=== PATIENT | female | born 1940 | race Caucasian/White ===

== ENCOUNTER 2019-11-26 21:18 | Inpatient (IN) ==
[2019-11-27] MEDS ORDERED: Naloxone 0.4 MG/ML INJ IVP PRN ×2 (00:57→03:50)
[2019-11-27] MEDS ORDERED: Ringers Solution, Lactated 1,000 ML IVC SCH (01:00)
[2019-11-27] MEDS ORDERED: Dextrose Gel 15 GM/37.5 ML TUBE PO PRN ×2 (01:01)
[2019-11-27] MEDS ORDERED: *HR* Dextrose 50 % in Water (Syg) 50 ML SYRINGE IVP PRN (01:01)
[2019-11-27] MEDS ORDERED: D5% in Water 1,000 ML IVC PRN (01:01)
[2019-11-27 02:31] LABS: INR 1.2; Prothrombin Time 13.7 Seconds (9.4-12.1)
[2019-11-27] MEDS: Ringers Solution, Lactated 1,000 ML IVC SCH ×2 (02:34→10:00)
[2019-11-27] MEDS: Acetaminophen 325 MG TABLET PO PRN ×2 (02:36→22:00)
[2019-11-27 02:41] LABS: Bilirubin,Urine Small (Negative); Blood,Urine Moderate (Negative); Clarity,Urine Turbid (Clear); Color,Urine Dark Yellow (Yellow); Glucose,Urine (UA) Normal (Normal); Ketones,Urine Negative (Negative); Leukocyte Esterase,Urine Large (Negative); Nitrite,Urine Negative (Negative); PH,Urine 5.5 pH Units (5.0-8.0); Protein,Urine 100 mg/dL (Neg-Trace); Specific Gravity,Urine 1.024 (1.010-1.025); Urobilinogen,Urine Normal (Normal)
[2019-11-27 02:43] LABS: Hyaline Casts,Urine None Seen per lpf (None-Few); Squamous Epithelial Cell,Urine Many per lpf (None-Few); WBC,Urine TNTC per hpf (0-3)
[2019-11-27 02:44] LABS: Albumin 3.3 g/dL (3.5-5.7); Bilirubin,Total 0.5 mg/dL (0.3-1.0); Calcium 9.2 mg/dL (8.6-10.3); Chol/HDL Ratio 5.1 (0-4.9); Globulin 3.3 g/dL (2.4-3.5); Magnesium 1.6 mg/dL (1.6-2.6); Phosphorous 3.4 mg/dL (2.7-4.5); Potassium 3.9 mEq/L (3.5-5.1); Total Protein 6.6 g/dL (6.4-8.9)
[2019-11-27 02:57] LABS: Basophils % 0.2 %; Eosinophils % 0.2 %; Hematocrit 37.9 % (35.3-44.9); Hemoglobin 12.3 g/dL (11.5-15.4); Immature Granulocytes % 0.3 % (0-4); Lymphocytes # 1.9 K/mcL (0.6-4.6); Lymphocytes % 15.7 %; Mean Corpuscular HGB Conc 32.5 g/dL (31.6-35.5); Mean Corpuscular Hemoglobin 30.1 pg (28.0-33.3); Mean Corpuscular Volume 92.9 fL (83.0-100.0); Mean Platelet Volume 10.3 fL (9.4-12.4); Monocytes # 0.6 K/mcL (0.0-1.3); Monocytes % 4.5 %; Neutrophils # 9.7 K/mcL (1.6-8.9); Platelet Count 226 K/mcL (140-400); Red Blood Count 4.08 M/mcL (3.82-4.97); Red Cell Distribution Width 13.7 % (11.5-14.5); Segmented Neutrophils % 79.1 %; White Blood Count 12.2 K/mcL (4.3-11.1)
[2019-11-27 03:07] LABS: Bacteria,Urine Few per hpf (None-Few)
[2019-11-27] MEDS ORDERED: Ondansetron 4 MG/2 ML VIAL IVP PRN (03:50)
[2019-11-27] MEDS ORDERED: Ringers Solution, Lactated 500 ML IVC ONE (03:59)
[2019-11-27] MEDS ORDERED: Ringers Solution, Lactated 1,000 ML ONE (04:26)
[2019-11-27] MEDS: cefTRIAXone 2,000 MG in Water for inj. (sterile) 20 ML IVP SCH (05:16)
[2019-11-27] MEDS: *HR* Heparin 5,000 UNIT/ML VIAL SQ SCH ×3 (05:22→22:00)
[2019-11-27 06:09] LABS: Basophils % 0.1 %; Hematocrit 31.8 % (35.3-44.9); Hemoglobin 10.8 g/dL (11.5-15.4); Immature Granulocytes % 0.5 % (0-4); Lymphocytes # 0.7 K/mcL (0.6-4.6); Mean Corpuscular Hemoglobin 30.9 pg (28.0-33.3); Mean Corpuscular Volume 91.1 fL (83.0-100.0); Mean Platelet Volume 10.4 fL (9.4-12.4); Monocytes # 0.6 K/mcL (0.0-1.3); Monocytes % 6.4 %; Neutrophils # 7.7 K/mcL (1.6-8.9); Platelet Count 179 K/mcL (140-400); Red Blood Count 3.49 M/mcL (3.82-4.97); Red Cell Distribution Width 13.5 % (11.5-14.5); White Blood Count 9.1 K/mcL (4.3-11.1)
[2019-11-27 06:30] LABS: Calcium 8.3 mg/dL (8.6-10.3); Magnesium 1.4 mg/dL (1.6-2.6); Phosphorous 2.5 mg/dL (2.7-4.5); Potassium 3.3 mEq/L (3.5-5.1)
[2019-11-27 06:45] LABS: INR 1.3; Prothrombin Time 15.3 Seconds (9.4-12.1)
[2019-11-27] MEDS ORDERED: Potassium Phosphate 44 MEQ in 0.9 % Sodium Chloride 250 ML IVPB ONE (07:41)
[2019-11-27] MEDS ORDERED: cefTRIAXone 1,000 MG in Water for inj. (sterile) 10 ML IVP SCH (09:00)
[2019-11-27 09:05] LABS: Estimated Average Glucose 180 mg/dl
[2019-11-27] MEDS: Aspirin 81 MG TAB.CHEW PO SCH (09:06)
[2019-11-27] MEDS: Metoprolol 100 MG TABLET PO SCH (09:06)
[2019-11-27] MEDS: Insulin LISPRO 300 UNITS/3 ML VIAL SQ SCH ×5 (09:07→21:58)
[2019-11-27] MEDS ORDERED: 0.9 % Sodium Chloride 500 ML IVC ONE (16:18)
[2019-11-27] MEDS: 0.9 % Sodium Chloride 1,000 ML IVC SCH (18:30)
[2019-11-27] MEDS: Insulin DETEMIR 100 UNIT/ML X5UNITS SQ SCH (21:59)
[2019-11-28] MEDS: 0.9 % Sodium Chloride 1,000 ML IVC SCH (03:26)
[2019-11-28] MEDS: cefTRIAXone 2,000 MG in Water for inj. (sterile) 20 ML IVP SCH (06:02)
[2019-11-28] MEDS: *HR* Heparin 5,000 UNIT/ML VIAL SQ SCH ×3 (06:02→21:25)
[2019-11-28 06:25] LABS: Hematocrit 29.4 % (35.3-44.9); Hemoglobin 9.4 g/dL (11.5-15.4); Mean Corpuscular Hemoglobin 30.2 pg (28.0-33.3); Mean Corpuscular Volume 94.5 fL (83.0-100.0); Mean Platelet Volume 10.5 fL (9.4-12.4); Platelet Count 159 K/mcL (140-400); Red Blood Count 3.11 M/mcL (3.82-4.97); Red Cell Distribution Width 13.8 % (11.5-14.5); White Blood Count 8.8 K/mcL (4.3-11.1)
[2019-11-28 06:41] LABS: Calcium 7.5 mg/dL (8.6-10.3); Magnesium 1.9 mg/dL (1.6-2.6); Phosphorous 3.3 mg/dL (2.7-4.5); Potassium 3.4 mEq/L (3.5-5.1)
[2019-11-28] MEDS: Insulin LISPRO 300 UNITS/3 ML VIAL SQ SCH ×5 (06:54→21:27)
[2019-11-28] MEDS: Metoprolol 100 MG TABLET PO SCH (08:17)
[2019-11-28] MEDS: Aspirin 81 MG TAB.CHEW PO SCH (08:18)
[2019-11-28] MEDS: Acetaminophen 325 MG TABLET PO PRN (08:18)
[2019-11-28] MEDS ORDERED: 0.9 % Sodium Chloride 1,000 ML IVC SCH (14:00)
[2019-11-28] MEDS: Insulin DETEMIR 100 UNIT/ML X5UNITS SQ SCH (21:27)
[2019-11-29] MEDS: *HR* Heparin 5,000 UNIT/ML VIAL SQ SCH ×3 (05:43→20:48)
[2019-11-29] MEDS: cefTRIAXone 2,000 MG in Water for inj. (sterile) 20 ML IVP SCH (05:43)
[2019-11-29 06:06] LABS: Hematocrit 29.7 % (35.3-44.9); Hemoglobin 9.5 g/dL (11.5-15.4); Mean Corpuscular Hemoglobin 30.1 pg (28.0-33.3); Mean Platelet Volume 10.7 fL (9.4-12.4); Platelet Count 192 K/mcL (140-400); Red Blood Count 3.16 M/mcL (3.82-4.97); Red Cell Distribution Width 13.6 % (11.5-14.5)
[2019-11-29 06:26] LABS: Calcium 8.3 mg/dL (8.6-10.3); Phosphorous 2.6 mg/dL (2.7-4.5); Potassium 3.7 mEq/L (3.5-5.1)
[2019-11-29] MEDS: Aspirin 81 MG TAB.CHEW PO SCH (08:12)
[2019-11-29] MEDS: Insulin LISPRO 300 UNITS/3 ML VIAL SQ SCH ×4 (08:12→20:47)
[2019-11-29] MEDS: Metoprolol 100 MG TABLET PO SCH (08:12)
[2019-11-29] MEDS ORDERED: cefTRIAXone 2,000 MG in Water for inj. (sterile) 20 ML IVP SCH (09:00)
[2019-11-29] MEDS ORDERED: Furosemide 20 MG/2 ML VIAL IVP ONE (11:32)
[2019-11-29] MEDS: Furosemide 40 MG TABLET PO SCH (17:15)
[2019-11-29] MEDS: Insulin DETEMIR 100 UNIT/ML X5UNITS SQ SCH (20:48)
[2019-11-30 02:37] LABS: Mean Corpuscular HGB Conc 32.1 g/dL (31.6-35.5); Mean Corpuscular Hemoglobin 29.6 pg (28.0-33.3); Mean Corpuscular Volume 92.1 fL (83.0-100.0); Mean Platelet Volume 10.6 fL (9.4-12.4); Platelet Count 207 K/mcL (140-400); Red Blood Count 3.04 M/mcL (3.82-4.97); Red Cell Distribution Width 13.6 % (11.5-14.5); White Blood Count 8.3 K/mcL (4.3-11.1)
[2019-11-30 03:04] LABS: Calcium 8.6 mg/dL (8.6-10.3); Magnesium 1.8 mg/dL (1.6-2.6); Phosphorous 2.7 mg/dL (2.7-4.5); Potassium 3.5 mEq/L (3.5-5.1)
[2019-11-30] MEDS: *HR* Heparin 5,000 UNIT/ML VIAL SQ SCH ×3 (06:07→21:31)
[2019-11-30] MEDS: Furosemide 40 MG TABLET PO SCH ×2 (08:54→18:13)
[2019-11-30] MEDS: Aspirin 81 MG TAB.CHEW PO SCH (08:54)
[2019-11-30] MEDS: Insulin LISPRO 300 UNITS/3 ML VIAL SQ SCH ×4 (08:54→21:32)
[2019-11-30] MEDS: Metoprolol 100 MG TABLET PO SCH (08:55)
[2019-11-30] MEDS ORDERED: levoFLOXacin 750 MG TABLET PO SCH (09:00)
[2019-11-30 19:07] LABS: Hematocrit 28.6 % (35.3-44.9)
[2019-11-30] MEDS: Insulin DETEMIR 100 UNIT/ML X5UNITS SQ SCH (21:32)
[2019-12-01] MEDS: *HR* Heparin 5,000 UNIT/ML VIAL SQ SCH ×2 (06:08→18:02)
[2019-12-01] MEDS: Insulin LISPRO 300 UNITS/3 ML VIAL SQ SCH ×4 (08:10→21:30)
[2019-12-01] MEDS: Metoprolol 100 MG TABLET PO SCH (10:07)
[2019-12-01] MEDS: Furosemide 40 MG TABLET PO SCH (10:07)
[2019-12-01] MEDS: Aspirin 81 MG TAB.CHEW PO SCH (10:08)
[2019-12-01 20:42] LABS: Hematocrit 29.9 % (35.3-44.9); Hemoglobin 9.5 g/dL (11.5-15.4); Mean Corpuscular HGB Conc 31.8 g/dL (31.6-35.5); Mean Corpuscular Hemoglobin 30.4 pg (28.0-33.3); Mean Corpuscular Volume 95.5 fL (83.0-100.0); Platelet Count 313 K/mcL (140-400); Red Blood Count 3.13 M/mcL (3.82-4.97); Red Cell Distribution Width 13.6 % (11.5-14.5); White Blood Count 8.7 K/mcL (4.3-11.1)
[2019-12-01 21:01] LABS: Calcium 8.7 mg/dL (8.6-10.3); Potassium 3.6 mEq/L (3.5-5.1)
[2019-12-01] MEDS: Insulin DETEMIR 100 UNIT/ML X5UNITS SQ SCH (21:32)
[2019-12-02] MEDS: *HR* Heparin 5,000 UNIT/ML VIAL SQ SCH ×2 (03:26→09:53)
[2019-12-02 06:35] LABS: Hemoglobin 9.2 g/dL (11.5-15.4); Mean Corpuscular HGB Conc 31.7 g/dL (31.6-35.5); Mean Corpuscular Hemoglobin 29.8 pg (28.0-33.3); Mean Corpuscular Volume 93.9 fL (83.0-100.0); Mean Platelet Volume 10.4 fL (9.4-12.4); Platelet Count 346 K/mcL (140-400); Red Blood Count 3.09 M/mcL (3.82-4.97); Red Cell Distribution Width 13.6 % (11.5-14.5); White Blood Count 9.4 K/mcL (4.3-11.1)
[2019-12-02 06:45] LABS: Calcium 8.6 mg/dL (8.6-10.3); Potassium 3.4 mEq/L (3.5-5.1)
[2019-12-02 07:41] VITALS: BP 141/67
[2019-12-02] MEDS: Insulin LISPRO 300 UNITS/3 ML VIAL SQ SCH ×2 (08:21→11:54)
[2019-12-02] MEDS: Aspirin 81 MG TAB.CHEW PO SCH (08:21)
[2019-12-02] MEDS: Metoprolol 100 MG TABLET PO SCH (08:22)
[2019-12-02] MEDS ORDERED: Furosemide 40 MG TABLET PO SCH (09:00)
[2019-12-02] MEDS ORDERED: levoFLOXacin 750 MG TABLET PO SCH (09:00)
== END 2019-12-02 15:03 | disposition other institution (70) | DRG 871 ==
LOC: 2NENU → SUATTDRO 23:18
PROVIDERS: ADMIT Student in an Organized Health Care Education/Training Program; ATTEND Internal Medicine